=== PATIENT | male | born 1960 | race Caucasian/White ===

== ENCOUNTER 2018-10-28 21:24 | Emergency (ER) | payer OTHER ==
[~2018-10-28] VITALS: Ht 188 cm; Wt 84.4 kg
[2018-10-28 21:33] VITALS: Ht 188 cm; Wt 84.4 kg
[2018-10-28 23:55] VITALS: BP 132/80
== END 2018-10-28 23:55 | disposition home or self-care (01) ==
LOC: ED 21:24
DX: J11.1 Influenza due to unidentified influenza virus with other respiratory manifestations (principal); J98.01 Acute bronchospasm; F17.200 Nicotine dependence, unspecified, uncomplicated; I10 Essential (primary) hypertension; E11.9 Type 2 diabetes mellitus without complications; Z98.890 Other specified postprocedural states
CPT/HCPCS: 99406; J7512; J7613; Q0092